=== PATIENT | female | born 2000 | race Caucasian/White ===

== ENCOUNTER 2019-12-07 19:13 | Emergency (ER) | payer MEDICAID ==
[2019-12-07] MEDS ORDERED: Albuterol/Ipratropium 3.0-0.5 MG/3 ML Neb Soln NEB ONE (19:54)
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
== END 2019-12-07 20:40 | disposition home or self-care (01) ==
LOC: JD.ED 19:13
DX: J45.901 Unspecified asthma with (acute) exacerbation (principal); Z79.899 Other long term (current) drug therapy
CPT/HCPCS: 94640; 99283; 99284-25; J7620-GY